=== PATIENT | male | born 1980 | race Caucasian/White ===

== ENCOUNTER → 2020-11-15 | Outpatient (CLI) | payer BC ==
[~2020-11-15] MED LIST: HYDACE5 PO; IBUP800 PO; IBUPROFEN/TYLENOL
[2020-11-16 19:08] LABS: FREE TESTOSTERONE(DIRECT) 4.6 pg/mL (6.8-21.5); TESTOSTERONE, SERUM 109 ng/dL (264-916)
== END ==
LOC: LAB SHORT 09:19 → LAB 09:19
PROVIDERS: Student in an Organized Health Care Education/Training Program
DX: E29.1 Testicular hypofunction (principal)
CPT/HCPCS: 84402; 84403

== ENCOUNTER → 2025-01-25 | Outpatient (CLI) | payer BC ==
[~2025-01-25] MED LIST changes: +AMLO10 PO; +DEPO-TESTO200 MG/1 M IM; +LOSA50 PO; +MAGNESIUM OXID500 MG PO; +Robaxin750 MG PO
[2025-01-25 17:58] LABS: BASOPHILS ABSOLUTE AUTO 0.09 K/mm3 (0.00-0.23); BASOPHILS PERCENT AUTO 2 % (0-2); EOSINOPHILS ABSOLUTE AUTO 0.17 K/mm3 (0.00-0.68); EOSINOPHILS PERCENT AUTO 3 % (0-6); Hematocrit 39.1 % (37.0-53.0); Hemoglobin 13.2 g/dL (13.5-17.5); IMMATURE GRAN ABSOLUTE AUTO 0.02 K/mm3 (0.00-0.10); IMMATURE GRAN PERCENT AUTO 0 % (0-1); LYMPHOCYTES ABSOLUTE AUTO 2.09 K/mm3 (0.84-5.20); LYMPHOCYTES PERCENT AUTO 35 % (21-46); MONOCYTES ABSOLUTE AUTO 0.52 K/mm3 (0.16-1.47); MONOCYTES PERCENT AUTO 9 % (4-13); Mean Corpuscular HGB Conc 33.8 g/dL (31.5-36.5); Mean Corpuscular Volume 91 fL (80-100); NEUTROPHILS ABSOLUTE AUTO 3.02 K/mm3 (1.96-9.15); NEUTROPHILS PERCENT AUTO 51 % (41-73); NRBC ABSOLUTE 0.00 K/mm3 (0.00-0.02); NRBC Auto 0.0 /100 WBC (0.0-0.2); Platelet Count 223 K/mm3 (150-400); RDW Coefficient Variation 12.5 % (11.7-14.2); RDW Standard Deviation 41.6 fL (35.1-46.3)
[2025-01-25 18:57] LABS: Alanine Aminotransfer (ALT/SGP 60 U/L (12-78); Albumin, Blood 4.1 g/dL (3.4-5.0); Albumin/Globulin Ratio 1.1 (0.8-1.8); Anion Gap 7 mmol/L (3-11); Aspartate Aminotrans (AST/SGOT 45 U/L (12-37); Bilirubin, Total 0.6 mg/dL (0.1-1.0); Blood Urea Nitrogen 36 mg/dL (8-24); CHOL/HDL RATIO 4.3; CO2, Blood 26 mmol/L (21-32); Calcium, Blood 9.5 mg/dL (8.5-10.1); Chloride, Blood 107 mmol/L (98-108); Cholesterol 203 mg/dL (50-200); Creatinine, Blood 1.69 mg/dL (0.60-1.20); Globulin, Blood 3.9 g/dL (2.2-4.0); Glucose, Blood 112 mg/dL (70-99); HDL Cholesterol 47 mg/dL (>39); LDL/HDL RATIO 2.7; Low Density Lipoprotein Chol 125 mg/dL (0-110); Potassium, Blood 4.4 mmol/L (3.5-5.5); Prostate Specific Antigen 1.240 ng/mL (0.000-4.000); Sodium, Blood 136 mmol/L (136-145); Thyroid Stimulating Hormone 4.030 uIU/mL (0.360-4.800); Total Protein, Blood 8.0 g/dL (6.4-8.2); Triglycerides 156 mg/dL (30-160); Very Low Density Lipoprot Chol 31 mg/dL (6-32)
[2025-02-02 17:58] LABS: TESTOSTERONE, FREE BY DIALYSIS 82.5 pg/mL (47.0-244.0); TESTOSTERONE, TOTAL MASS SPEC 441.0 ng/dL (300.0-890.0)
== END | disposition home or self-care (01) ==
LOC: LAB 16:13 → LAB SHORT 16:13
PROVIDERS: Family Medicine
DX: E29.1 Testicular hypofunction (principal); Z79.899 Other long term (current) drug therapy
CPT/HCPCS: 80053; 80061; 82306; 83036; 84153; 84402; 84403; 84443; 85025